=== PATIENT | female | born 1965 | race Caucasian/White ===

== ENCOUNTER 2016-04-19 16:32 | Emergency (ER) | payer MEDICAID ==
[2016-04-19] MEDS ORDERED: KETOROLAC TROMETHAMINE INJ 30 MG/ML VIAL IV ONE (17:23)
[2016-04-19] MEDS ORDERED: SODIUM CHLORIDE 0.9% (FLUSH) 10 ML SYG IV PRN (17:23)
[2016-04-19] MEDS ORDERED: ONDANSETRON INJ 4 MG/2 ML VIAL IV ONE (17:23)
[2016-04-19] MEDS ORDERED: SODIUM CHLORIDE 0.9% 1000ML 1,000 ML IVS PRN (17:23)
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
[2016-04-19] MEDS ORDERED: MORPHINE SULFATE INJ 10 MG/ML VIAL IV ONE ×2 (18:23→22:57)
--- NOTE | 2016-04-19 18:33 | CT ---
EXAM DESCRIPTION: CT ABDOMEN AND PELVIS WITH INTRAVENOUS CONTRAST CLINICAL HISTORY: Vomiting and abdominal distention. COMPARISON: None. TECHNIQUE: CT of the abdomen and pelvis was performed with intravenous contrast. Oral contrast was not given. The patient was injected with intravenous contrast. FINDINGS: The lung bases included on the exam demonstrate no acute findings. There is presence of supraumbilical anterior mid abdominal wall ventral hernia defect containing few small bowel wall loops resulting in antegrade small bowel obstruction. There is also presence of a small segment of nonobstructed loop of transverse colon in this ventral hernia The liver, gallbladder, pancreas, spleen and the bilateral adrenal glands are unremarkable in appearance. Few benign appearing cortical cysts are seen in the bilateral kidneys. The bilateral kidneys otherwise enhance in a normal fashion, without any evidence of hydronephrosis or focal mass lesions. The bilateral ureters are unremarkable. The urinary bladder is unremarkable. There is normal contrast opacification of the main as well as right and left portal veins and the splenic vein. There is no CT evidence of acute appendicitis. The ileocecal junction is unremarkable. There is no ileocecal mesenteric adenitis. There is no large bowel wall obstruction, colitis or acute diverticulitis. There is no pathological retroperitoneal or pelvic lymphadenopathy, free fluid or free air. There is no clinically significant aneurysmal dilatation of the abdominal aorta. An anteverted uterus is seen The visualized lower thoracic and the lumbar spine shows underlying degenerative change, most pronounced at L5/S1 level. The remainder of the pelvic structures appear unremarkable. The findings were discussed with Dr. Edilma Vuong, from the ER service at 6:30 p.m. IMPRESSION: There is presence of supraumbilical anterior mid abdominal wall ventral hernia defect containing few small bowel wall loops resulting in antegrade small bowel obstruction There is also presence of a small segment of nonobstructed loop of transverse colon in this ventral hernia Electronically signed by: Eddie Keller MD 04/19/2016 18:31
[2016-04-19] MEDS ORDERED: SODIUM CHLORIDE 0.9% 1000ML 500 ML IVS ONE (19:20)
[2016-04-19] MEDS ORDERED: SOD CHL 3% *HYPERTONIC* 500ML 160 ML IVS ONE (20:15)
[2016-04-19] MEDS ORDERED: PROMETHAZINE HCL INJ 25 MG in SODIUM CHLORIDE 0.9% 50ML 50 ML IVPB ONE (20:17)
[2016-04-19] MEDS ORDERED: PROMETHAZINE HCL INJ 25 MG/ML VIAL ONE (20:22)
[2016-04-19] MEDS ORDERED: SODIUM CHLORIDE 0.9% 50ML 50 ML ONE (20:22)
[2016-04-20] MEDS ORDERED: MORPHINE SULFATE INJ 10 MG/ML VIAL ONE (00:16)
[2016-04-20 02:17] VITALS: O2SAT 95
[2016-04-20 02:20] VITALS: BP 124/71; TEMP 98.7
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
== END 2016-04-20 02:20 | disposition home or self-care (01) ==
LOC: ER 16:32
DX: K43.6 Other and unspecified ventral hernia with obstruction, without gangrene (principal); R11.2 Nausea with vomiting, unspecified; E87.1 Hypo-osmolality and hyponatremia; Z79.899 Other long term (current) drug therapy
CPT/HCPCS: 36415; 74177; 80048; 80076; 81001; 82150; 82550; 82553; 83605; 83690; 84484; 85025; 87086; A4216; J1885; J2270; J2405; J2550; J7030; J7799